=== PATIENT | female | born 1960 | race Two or more races ===

== ENCOUNTER 2017-06-27 09:15 | Emergency (ER) | payer OTHER ==
[~2017-06-27] VITALS: Ht 160 cm; Wt 70.8 kg
[2017-06-27 09:21] VITALS: BP 122/91
== END 2017-06-27 09:43 | disposition home or self-care (01) ==
LOC: EDSEX 09:19 → ER 09:19
DX: H60.91 Unspecified otitis externa, right ear (principal); E11.9 Type 2 diabetes mellitus without complications; E03.9 Hypothyroidism, unspecified; E55.9 Vitamin D deficiency, unspecified
CPT/HCPCS: 99283; A4606; Z7610

== ENCOUNTER 2021-02-06 14:24 | Emergency (ER) | payer OTHER ==
[~2021-02-06] VITALS: Ht 160 cm; Wt 71.7 kg
[2021-02-06 14:30] VITALS: BP 139/76
--- NOTE | 2021-02-06 14:35 | NUR ---
AWAITING MD FAIRCHILD
[2021-02-06] MEDS ORDERED: KETOROLAC TROMETHAMINE INJ 60 MG/2 ML VIAL IM ONE (15:00)
[2021-02-06] MEDS ORDERED: KETOROLAC TROMETHAMINE INJ 30 MG/ML VIAL ONE (15:01)
[2021-02-06] MEDS ORDERED: NAPR-1009 PO (15:36)
--- NOTE | 2021-02-06 15:49 | NUR ---
Patient discharged to home in stable condition. Written and verbal after care instructions given. Patient verbalizes understanding of instruction.
== END 2021-02-06 15:47 | disposition home or self-care (01) ==
LOC: ER 14:24
DX: M54.5 Low back pain (principal); I10 Essential (primary) hypertension; E78.00 Pure hypercholesterolemia, unspecified; E03.9 Hypothyroidism, unspecified; E11.9 Type 2 diabetes mellitus without complications
CPT/HCPCS: 96372; 99283; J1885